=== PATIENT | female | born 1985 | race Caucasian/White ===

== ENCOUNTER 2023-10-14 11:22 | Observation (INO) | payer OTHER ==
[~2023-10-14] VITALS: Ht 157.5 cm; Wt 88.5 kg
[~2023-10-14 11:22] MED LIST: ALBU90OI INH; AMOCLA875 PO; AMOX500 PO; AZIT250 PO; Atarax10 MG PO; CARB50; CEPH500 PO; CLON2 PO; CYCL10 PO; DIPH50 PO; DIVA500EC PO; DOCU100 PO; DULO60 PO; Doxycycline Mo100 M1 PO; ESCI10; ESCI20; ESCI20 PO; HALO5 PO; HYDACE25S PR; HYDACE5 PO; LORA1 PO; LORA2 PO; METO5A PO; NAPR500 PO; OLAN10 PO; PERM5TC TOP; PRED10 PO; PRENZ; PROM25 PO; QUET300 PO; RXCYCL10 PO; RXHYDACE PO; SULTRIDS PO; ZIPR60 PO; [UNRECOGNIZED DRUG - REMARK]
[2023-10-14] MEDS ORDERED: HyDROXyzine HCl 25 MG Tab PO ONE (12:50)
[2023-10-14] MEDS ORDERED: Acetaminophen 325 MG TABLET PO ONE (12:50)
[2023-10-14 13:18] LABS: BASOPHILS ABSOLUTE AUTO 0.02 K/mm3 (0.00-0.23); BASOPHILS PERCENT AUTO 0 % (0-2); EOSINOPHILS ABSOLUTE AUTO 0.02 K/mm3 (0.00-0.68); EOSINOPHILS PERCENT AUTO 0 % (0-6); Hematocrit 31.6 % (33.0-51.0); Hemoglobin 10.9 g/dL (11.5-16.0); IMMATURE GRAN ABSOLUTE AUTO 0.02 K/mm3 (0.00-0.10); IMMATURE GRAN PERCENT AUTO 0 % (0-1); LYMPHOCYTES ABSOLUTE AUTO 1.61 K/mm3 (0.84-5.20); LYMPHOCYTES PERCENT AUTO 23 % (21-46); MONOCYTES ABSOLUTE AUTO 1.16 K/mm3 (0.16-1.47); MONOCYTES PERCENT AUTO 16 % (4-13); Mean Corpuscular HGB 29.8 pg (26.0-34.0); Mean Corpuscular HGB Conc 34.5 g/dL (31.5-36.5); Mean Corpuscular Volume 86 fL (80-100); Mean Platelet Volume 11.7 fL (9.1-12.4); NEUTROPHILS ABSOLUTE AUTO 4.24 K/mm3 (1.96-9.15); NEUTROPHILS PERCENT AUTO 60 % (41-73); Platelet Count 235 K/mm3 (150-400); RDW Coefficient Variation 16.6 % (11.7-14.2); RDW Standard Deviation 51.7 fL (35.1-46.3); Red Blood Cell Count 3.66 M/mm3 (3.80-5.20); White Blood Cell Count 7.07 K/mm3 (4.00-11.30)
[2023-10-14 13:22] LABS: Ethanol (Alcohol), Blood, Med <3 mg/dL; Salicylate 1.9 mg/dL (2.8-20.0)
[2023-10-14 13:31] LABS: Alanine Aminotransfer (ALT/SGP 15 U/L (12-78); Albumin, Blood 3.2 g/dL (3.4-5.0); Albumin/Globulin Ratio 0.9 (0.8-1.8); Alk Phos 45 U/L (50-136); Anion Gap 9 mmol/L (3-11); Aspartate Aminotrans (AST/SGOT 15 U/L (12-37); Bilirubin, Total 0.4 mg/dL (0.1-1.0); Blood Urea Nitrogen 10 mg/dL (8-24); Bun/Creatinine Ratio 11.4 (12.0-20.0); CO2, Blood 26 mmol/L (21-32); Calcium, Blood 8.8 mg/dL (8.5-10.1); Chloride, Blood 111 mmol/L (98-108); Creatinine, Blood 0.88 mg/dL (0.40-1.00); Globulin, Blood 3.6 g/dL (2.2-4.0); Glomerular Filtration Rate 86 (60-); Glucose, Blood 108 mg/dL (70-99); Sodium, Blood 143 mmol/L (136-145); Total Protein, Blood 6.8 g/dL (6.4-8.2)
[2023-10-14 13:35] LABS: Acetaminophen, Random <2.0 ug/mL (10.0-30.0)
[2023-10-14 14:02] LABS: U Amphetamine Screen Not Detected; U Barbituate Screen Not Detected; U Benzodiazapine Screen Not Detected; U Buprenorphine Screen Not Detected; U Cannabinoids Screen DETECTED; U Cocaine Screen Not Detected; U Methadone Screen Not Detected; U Methamphetamine Screen Not Detected; U Opiates Screen Not Detected; U Oxycodone Screen Not Detected; U Phencyclidine Screen Not Detected
[2023-10-14] MEDS ORDERED: Potassium Chloride 20 MEQ/15 ML UDC PO ONE (15:50)
[2023-10-14 16:27] LABS: Source, Urine Clean Catch
[2023-10-14 16:37] LABS: Appearance, Urine Hazy (Clear); Bilirubin, Urine Neg (Neg); Blood, Urine Neg (Neg); Color, Urine Yellow (P-Yellow); Glucose Qualitative, Urine Neg (Neg); Ketones, Urine Neg (Neg); Leukocyte Esterase, Urine 1+ (Neg); Nitrite, Urine Neg (Neg); Protein, Urine Neg (Neg); Urobilinogen, Urine NORM (Normal)
[2023-10-14 16:45] LABS: Bacteria Many /hpf; Red Blood Cells, Urine 0-2 /hpf (0-2); Squamous Epithelial Cells Few /hpf (Few); White Blood Cells, Urine 0-2 /hpf (0-5)
[2023-10-14 17:42] LABS: Influenza A, PCR NEGATIVE (NEGATIVE); Influenza B, PCR NEGATIVE (NEGATIVE); Resp Syncytial Virus, PCR NEGATIVE (NEGATIVE); SARS-Cov-2 (COVID-19) PCR, MMC NEGATIVE (NEGATIVE)
[2023-10-15] MEDS ORDERED: KLOR-CON M1010 MEQ PO (09:32)
[2023-10-15] MEDS ORDERED: PRAZ5 PO (09:32)
[2023-10-15] MEDS ORDERED: ESCI20 PO (09:32)
[2023-10-15] MEDS ORDERED: LATUDA40 M1 PO (09:32)
[2023-10-15] MEDS ORDERED: LURASIDONE (LATUDA) 40 MG TAB PO SCH (12:00)
== END 2023-10-15 10:52 | disposition home or self-care (01) ==
LOC: ER 11:22 → EOR 11:23
PROVIDERS: Physician Assistant; ADMIT Emergency Medicine
DX: F20.9 Schizophrenia, unspecified (principal); F43.20 Adjustment disorder, unspecified; R45.851 Suicidal ideations; Z87.891 Personal history of nicotine dependence; F31.9 Bipolar disorder, unspecified; Z71.1 Person with feared health complaint in whom no diagnosis is made
CPT/HCPCS: 0241U; 36415; 80053; 81001; 81003; 81025; 84436; 84443; 85025; 86592; 87086; 93005; 93010; 96361; 96365; 96374; 99284-25; 99285-25; A9270; G0378; G0480; J0696; J1790; J7030

== ENCOUNTER → 2024-05-05 | Outpatient (CLI) | payer OTHER ==
[~2024-05-05] MED LIST changes: +KLOR-CON M1010 MEQ PO; +LATUDA40 M1 PO; +PRAZ5 PO
[2024-05-14 08:02] LABS: HPV HIGH RISK BY TMA Not Detected; HPV SOURCE Cervical/Vag
== END | disposition home or self-care (01) ==
LOC: LAB SHORT 09:34 → LAB 09:34
PROVIDERS: Family Medicine
DX: Z01.419 Encounter for gynecological examination (general) (routine) without abnormal findings (principal)
CPT/HCPCS: 87624; G0123

== ENCOUNTER 2024-08-05 11:20 | Day surgery (SDC) | payer OTHER ==
[~2024-08-05] VITALS: Ht 157.5 cm; Wt 97.5 kg
[~2024-08-05 11:20] MED LIST changes: +Lactated Ringer's 1,000 ML IV ONE
[2024-08-05] MEDS ORDERED: propofoL 20 ML IV ONE (11:47)
[2024-08-05] MEDS ORDERED: FentaNYL Citrate 50 MCG/ML 2 ML Injection ONE (11:50)
[2024-08-05] MEDS ORDERED: Midazolam HCl 1MG / ML 2ML Vial ONE (11:50)
[2024-08-05] MEDS ORDERED: Lactated Ringer's 1,000 ML IV ONE (12:00)
[2024-08-05] MEDS ORDERED: Dexamethasone Sod Phos 10 MG/ML 1ML VIAL ONE (12:42)
[2024-08-05] MEDS ORDERED: Ondansetron HCl 2 MG / ML 2ML Vial ONE (12:42)
[2024-08-05] MEDS ORDERED: Ketorolac Tromethamine 30mg Vial ONE (12:43)
--- NOTE | 2024-08-05 13:12 | NUR ---
08/05/24 1312 Cristina Forrester MYOSURE FLUID DEFICIT LESS THAN 100, NOTIFIED
--- NOTE | 2024-08-05 13:27 | NUR ---
08/05/24 1327 Juan Aguiar PT VOMITED PRIOR TO EMERGENCE. PT'S HEAD WAS RAISED AND SUCTION APPLIED. SHE DENIED NAUSEA, SP, AND SOB UPON WAKING.
[2024-08-05] MEDS ORDERED: OxyCODONE 5 mg/Acetamin 325 mg TABLET ONE (14:05)
--- NOTE | 2024-08-05 14:26 | NUR ---
08/05/24 1426 JULIA Winslow RN TALKED TO ANESTHESIA, DR YODER, ABOUT PT VOMITING IN PACU. SUCTION WAS DONE WHILE OVER AT PACU. ANESTHESIOLOGIST CHECKED AND ASSESSED PATIENT AT STEPDOWN BAY 1. GIANNI THOMASON, ASKED DR YODER IF PT OK TO TAKE PO PERCOCET FOR HER PAIN. ANESTHESIOLOGIST STATES THAT IS OK AFTER ASSESSING PT. PT ALSO TALKED TO DR LEMUS AND ASKED MD QUESTIONS. DR LEMUS ANSWERED CONCERNS AND QUESTIONS AT STEPDOWN BAY 1 WITH PATIENT.
== END 2024-08-05 14:40 | disposition home or self-care (01) ==
LOC: ORSCSDS 11:20
PROVIDERS: Obstetrics & Gynecology
PROC: 0UDB8ZX Extraction of Endometrium, Via Natural or Artificial Opening Endoscopic, Diagnostic (ICD-10-PCS; principal; 2024-08-05 12:30)
DX: N93.9 Abnormal uterine and vaginal bleeding, unspecified (principal); N84.0 Polyp of corpus uteri; R93.89 Abnormal findings on diagnostic imaging of other specified body structures; I10 Essential (primary) hypertension; Z87.891 Personal history of nicotine dependence; F31.81 Bipolar II disorder; Z79.899 Other long term (current) drug therapy
CPT/HCPCS: 88305; A9270; J1100; J1885; J2250; J2405; J2704; J3010; J7120

== ENCOUNTER → 2024-09-15 | Outpatient (CLI) | payer OTHER ==
[~2024-09-15] MED LIST changes: -Lactated Ringer's 1,000 ML IV ONE
[2024-09-15 19:49] LABS: Candida Group, PCR NOT DETECTED (NOT DETECT); Candida glabrata-krusei, PCR NOT DETECTED (NOT DETECT)
[2024-09-15 20:07] LABS: Bacterial Vaginosis PCR Positive (NEGATIVE)
[2024-09-15 20:22] LABS: Chlamydia Trachomatis Vaginal NOT DETECTED (NOT DETECT); Neisseria Gonorrhoea Vaginal NOT DETECTED (NOT DETECT)
== END ==
LOC: LAB 16:47 → LAB SHORT 16:47
PROVIDERS: Advanced Practice Midwife
DX: Z11.3 Encounter for screening for infections with a predominantly sexual mode of transmission (principal); N76.0 Acute vaginitis
CPT/HCPCS: 81515; 87491; 87591